=== PATIENT | female | born 1980 | race Caucasian/White ===

== ENCOUNTER 2019-10-01 14:34 | Outpatient (CLI) | payer OTHER, SELFPAY ==
--- NOTE | ~2019-10-01 | CT_ITS ---
EXAMINATION: CT abdomen pelvis w con DATE: 10/01/2019 15:26 INDICATION: Upper abdominal pain TECHNIQUE: Computed tomography (CT) of the abdomen and pelvis was performed with 100 cc Omnipaque 350 intravenous contrast. Automated exposure control and iterative reconstruction technique were employe d. Exam dose: 832.53 mGy-cm total exam DLP. COMPARISON: None. FINDINGS: The lung bases are clear of consolidation. Normal heart size. No pericardial or pleural eff usion. Small sliding hiatal hernia. The liver, gallbladder, bile ducts, spleen, pancreas and pancreatic duct are unremarkable. Normal mor phology of the adrenal glands. Cysts 7 mm left renal cyst. There is mild bilateral hydronephrosis, right greater than left, likely due to compression by a large right adnexal solid mass extending into the upper abdomen well above the level of the umbilicus. The mass measures up to 15.5 cm transverse dimension, up to 17.5 cm vertical dimension. There are some a reas of calcification within the mass. This is likely a mass of right ovarian origin. The uterus and left adnexal area is unremarkable. The urinary bladder is unremarkable. Normal appendix. No bowel obstruction or intraperitoneal free air. Normal caliber of the abdominal aorta. No intraperitoneal or retroperitoneal or pelvic mass lesion is noted other than the large right adnexal mass. Included skeletal structures are unremarkable. IMPRESSION: Up to 17.5 cm right adnexal mass, likely of ovarian origin. Ovarian malignancy cannot be excluded. Gynecologic consult is recommended. Reviewed, dictated and finalized at [facility]. Reviewed, dictated and finalized at location A. IMPRESSION: Up to 17.5 cm right adnexal mass, likely of ovarian origin. Ovaria n malignancy cannot be excluded. Gynecologic consult is recommended.
== END 2019-10-01 14:35 | disposition home or self-care (01) ==
PROVIDERS: PCP Family Medicine; Visit Provider Nurse Practitioner Family
DX: R19.09 Other intra-abdominal and pelvic swelling, mass and lump (principal)
CPT/HCPCS: 74177; Q9967

== ENCOUNTER 2019-10-14 15:23 | Outpatient (CLI) | payer OTHER, SELFPAY ==
--- NOTE | ~2019-10-14 | US_ITS ---
EXAMINATION: US pelvic complete w TV EXAM DATE: 10/14/2019 16:10 INDICATION: Pelvic mass on CT. TECHNIQUE: Pelvic transabdominal and transvaginal sonogram was performed. There are multiple graysca le and Doppler images available for interpretation. Correlation is made to CT 10/01/2019. FINDINGS: Uterus measures 13.3 x 7.3 x 7.8 cmwith a 3.9 cm fibroid identified. Small amount of fluid in the cervical canal. Endometrial stripe measures 10 mm, within normal limits. There is no free pe lvic fluid. Right adnexa: The ovary measures 18.0 x 14.9 x 14.2 cm, with a mildly complex cystic mass accounting for most of this measurement at 17.4 x 14.9 x 13.5 cm. Ovarian vascular flow confirmed. Left adnexa: The ovary is not identified. There is no adnexal mass. IMPRESSION: Right adnexal complex cystic mass likely ovarian neoplasm. Histologic correlation indicat ed. Reviewed, dictated and finalized at location A. IMPRESSION: Right adnexal complex cystic mass likely ovarian neoplasm. Histolog ic correlation indicated.
== END 2019-10-14 15:24 | disposition home or self-care (01) ==
PROVIDERS: PCP Family Medicine; Visit Provider Obstetrics & Gynecology
DX: N94.89 Other specified conditions associated with female genital organs and menstrual cycle (principal)
CPT/HCPCS: 76830; 76856

== ENCOUNTER 2023-01-23 10:21 | Outpatient (CLI) | payer OTHER, SELFPAY ==
--- NOTE | ~2023-01-23 | XR_ITS ---
Left foot Technique: AP, oblique, and lateral views were obtained. Clinical History: Pain Findings: Suspected small avulsion fracture from the dorsal talus. Osseous alignment is anatomic. Beti nt spaces are preserved without erosive or degenerative change. Soft tissues are unremarkable. Impression: Suspected small avulsion fracture from the dorsal talus/talar head. Reviewed, dictated and finalized at location . Impression: Suspected small avulsion fracture from the dorsal talus/talar head.
== END 2023-01-23 10:22 | disposition home or self-care (01) ==
LOC: ANHIMG 10:23
PROVIDERS: PCP Family Medicine; Visit Provider Nurse Practitioner Family
DX: S99.922A Unspecified injury of left foot, initial encounter (principal)
CPT/HCPCS: 73630

== ENCOUNTER 2025-05-07 02:40 | Emergency (ER) | payer OTHER, SELFPAY ==
--- NOTE | ~2025-05-07 | XR_ITS ---
Examination: XR knee RT min 4V Clinical History: pain to knee Comparison: None Technique: 4 views right knee Findings/impression: 1. No fracture, dislocation, or effusion. Reviewed, dictated and finalized at location R. TY ADVISOR
[2025-05-07 02:40] VITALS: BP 132/75; PULSE 84; RESP 16; TEMP 36.6; O2SAT 99
--- OUTSIDE RECORDS SUMMARY | 2025-05-07 02:41 | XMS_ITS | Clinical Summary ---
Author Organization [facility] Address [address] [place] [address] Care Team Providers Care Airport Operations Manager Name Role Phone Victor M Prieto MD Primary Care Provider [phone] Source Comments [facility],non-owned Affiliates and Associated Physician Practices is amultiple site organization consisting of ambulatory clinics and hospital sitesin [place], [place], [place] and [place]. This disclosure is being madepursuant to the Care Everywhere program and may not contain all information available regarding this patient. Last updated 18.[facility] Allergies Active Allergy Reactions Criticality Noted Date Comments Ibuprofen Other Medium 10/24/2019 Abdomen hurts really bad Latex Other Medium 10/24/2019 Irritation Medications * Be aware that medications may not be up to date on this document. Alwaysverify current medications with the patient. montelukast (SINGULAIR) 10 MG tablet Take 1 (one) tablet by mouth 2 times daily as needed 0 Active Albuterol Sulfate, sensor, (PROAIR DIGIHALER) 108 (90 Base) MCG/ACT AEPB Inhale 1 Dose by mouth as directed Active acetaminophen (TYLENOL) 325 MG tabletIndicati ons:Ovarian mass Take 2 tablets by mouth every 6 hours Maximum allowable Acetaminophen amount = 4 Grams (4000 mg) / 24 hours. 40 tablet 0 Active Additional Information Patient not taking.Reported on 09/22/2022 venlafaxine XR 24hr (Effexor XR) 150 MG capsule Take 1 (one) capsule by mouth once daily 90 capsule 4 2 Active Active Problems Problem Noted Date Diagnosed Date Ovarian cancer on left 05/14/2020 S/P CHRISTIANE-BSO (total abdominal hysterectomy and bilateral salpingo-oophorectomy) 05/14/2020 Ovarian mass 11/21/2019 Resolved Problems Problem Noted Date Diagnosed Date Resolved Date Preop examination 11/18/2019 11/21/2019 Family History Medical History Relation Name Comments Crohn's Disease Mother Relation Name Status Comments Mother Social History Tobacco Use Types Packs/Day Years Used Date Smoking Tobacco: Never Smokeless Tobacco: Never Tobacco Cessation:Counseling Given: Not Answered Alcohol Use Standard Drinks/Week Comments Yes 0 (1 standard drink = 0.6 oz pur e alcohol) occ AUDIT-C Answer Date Recorded Q1: How often do you have a drink containing alc ohol? 2-3 times a week 11/18/2019 Q2: How many drinks containi ng alcohol do you have on a typical day when you are drinking? 1 or 2 11/18/2019 Q3: How often do you have si x or more drinks on one occasion? Never 11/18/2019 Comments No Sex and Gender Information Value Date Recorded Sex Assigned at Not on file Legal Sex Female 2:55 PM CDT Gender Identity Not on file Sexual Orientation Not on file Last Filed Vital Signs Vital Sign Reading Time Taken Comments Blood Pressure 124/84 09/22/2022 1:53 PM CDT Pulse 113 03/24/2022 2:35 PM CLINICAL COUNSELOR Temperature 36.8 C (98.3 F) 12/03/2019 2:30 PM CDT Respiratory Rate 20 11/21/2019 12:1 8 PM CDT Oxygen Saturation 98% 03/24/2022 2:35 PM CLINICAL COUNSELOR Inhaled Oxygen Concentration - - Weight 107.3 kg (236 lb 9.6 oz) 03/24/2022 2:35 PM CLINICAL COUNSELOR Height 160 cm (5' 3) 03/24/2022 2:35 PM CLINICAL COUNSELOR Body Mass Index 41.91 03/24/2022 2:35 PM CLINICAL COUNSELOR Plan of Treatment Health Maintenance Due Date Last Done Comments COLOGUARD (AGES 45-75) - COLON CA SCREENING 1978 COLON MONITORING 1978 COLONOSCOPY - COLON CA SCREENING 1978 CT COLONOGRAPHY - COLON CA SCREENING 1978 Colorectal Cancer Screening 1978 FIT - COLON CA SCREENING 1978 FLEX SIG - COLON CA SCREENING 1978 LIPID TESTING 1978 MAMMOGRAM 1978 HIV SCREENING 1993 HEPATITIS C SCREENING 01/07/1996 DTAP/TDAP/TD VACCINES (1 - Tdap) 1997 HEPATITIS B VACCINE (1 of 3 - 19+ 3-dose series) 1997 SCREENING FOR DIABETES 11/20/2022 0, 11/20/2019, 11/19/2019, Additional history exists DEPRESSION SCREENING 05/15/2024 COVID-19 VACCINE ( - season) 2025 INFLUENZA VACCINE (#1) 2025 ZOSTER VACCINE (1 of 2) 01/12/2028 HIB VACCINE Aged Out No longer eligi ble based on patient's age to complete this topic HPV VACCINE Aged Out No longer eligi ble based on patient's age to complete this topic MENINGOCOCCAL (Group B) VACCINE SHARED DECISION-MAKING Aged Out No longer eligible based on patient's age to complete this topic MENINGOCOCCAL GROUPS A/C/Y/W VACCINE Aged Out No longer eligible based on patient's age to complete this topic PNEUMOCOCCAL VACCINE Aged Out No long er eligible based on patient's age to complete this topic Procedures Procedure Name Priority Date/Time Associated Diagnosis Comments BASIC METABOLIC PANEL (CALCIUM TOTAL) Routine 11/21/2019 6:54 AM CDT from Last 3 Months or Most Recently Relevant to Health Maintenance Results * (ABNORMAL) BASIC METABOLIC PANEL (CALCIUM TOTAL) (11/21/2019 6:54 AM CDT) [facility] Glucose 83 70 - 105 mg/dL 11/21/2019 7:[address] [facility] Sodium 136 136 - 145 mmol/L 11/21/2019 7:[address] [facility] Potassium 3.7 3.5 - 5.1 mmol/L 11/21/2019 7:[address] [facility] Chloride 102 98 - 107 mmol/L 11/21/2019 7:[address] [facility] CO2 22(L) 23 - 31 mmol/L 11/21/2019 7:40 AM CDT [facility] Calcium 8.3(L) 8.4 - 10.4 mg/dL 11/21/2019 7:40 AM CDT [facility] Anion Gap 12 8 - 16 mmol/L 11/21/2019 7:[address] [facility] BUN 6(L) 7 - 18.7 mg/dL 11/21/2019 7:40 AM CDT [facility] Creatinine 0.72 0.57 - 1.11 mg/dL 11/21/2019 7:40 AM CDT [facility] eGFR by MDRD >60 >60 mL/min/1.7 3m2 11/21/2019 7:40 AM CDT [facility] eGFR by MDRD >60 >60 mL/min/1.7 2 11/21/2019 7:[address] [facility] Blood BLOOD SPECIMEN / Unknown Lab Venipuncture / Unknown 11/21/2019 6:54 AM CDT 11/21/2019 7:12 AM CDT Darleen Vasquez MD LAB - CHEMISTRY ORDERABLE S Final Result [facility] [address] [id number] from Last 3 Months or Most Recently Relevant to Health Maintenance Insurance Care Teams Airport Operations Manager Relationship Specialty Start Date End Date Victor M Prieto MD [address] [place] [address] PCP - General Family Medicine 11/18/19
--- NOTE | 2025-05-07 07:16 | PC.NURSE ---
Took report on patient at 711
--- NOTE | 2025-05-07 07:25 | ED.GENADULT ---
HPI - General Adult General Chief complaint: Extremity Injury, Lower Stated complaint: right knee Time Seen by Provider: 05/07/25 06:59 History of Present Illness HPI narrative: 45-year-old female present to the emergency department for evaluation for right knee pain. Patient reports that she began having some right knee pain after getting home from work. Patient denies any specific incident fall or injury. Patient states that the pain awoke her from sleep. Patient did take Tylenol for pain control overnight and was icing it. Patient states the pain was so intense that she needed to be evaluated. After waiting in the emergency department patient states her pain has now resolved. At time of my initial evaluation patient is pain free. Related Data Home Medications ?Medication ?Instructions ?Recorded ?Confirmed ?Last Taken ?Type albuterol sulfate 90 mcg/actuation 1 inhalation inhalation Q4H 10/03/19 12/07/21 Unknown History aerosol inhaler (ProAir HFA) venlafaxine 75 mg capsule,extended 75 mg PO DAILY 12/07/21 12/07/21 Unknown History release 24 hr Allergies Allergy/AdvReac Type Severity Reaction Status Date / Time latex Allergy Intermediate Rash Verified 12/07/21 16:18 ibuprofen AdvReac Intermediate Chest Pain Verified 12/07/21 16:18 Review of Systems Review of Systems: All systems reviewed & are unremarkable except as noted in HPI and below PMFSH Past Medical History Medical History (Updated 05/07/25 @ 07:27 by Tobisa Abdullahi MD) Hx of malignant neoplasm of endometrium Pelvic pain Irregular periods Pelvic mass Asthma Family History Family History Mother Family history of gastrointestinal disorder Grandparent Family history of coronary artery disease Social History Social History (Updated 12/07/21 @ 16:20 by Viki Dick RN) Smoking status: Never smoker Tobacco type: cigarettes Alcohol intake: current Drinks per week: 5 Substance use: never Substance use type: does not use Exam Narrative: APPEARANCE: Well appearing, no pain, no distress, well-nourished. HEAD: normocephalic, atraumatic. EYES: PERRLA/EOMI, conjunctivae clear. NOSE: Normal no drainage EARS:TMS clear with good light reflex. THROAT: Pharynx clear, no exudate. NECK: Supple. No adenopathy, no masses. RESPIRATORY: Airway patent, respirations nonlabored. Clear to auscultation bilaterally, no rales, rhonchi, wheezing. CARDIOVASCULAR: Regular rate and rhythm without murmurs rubs or gallops. ABDOMINAL: Soft, nontender, nondistended, normal bowel sounds MUSCULOSKELETAL: Moves all extremities. Strength/ROM intact, No edema, No calf tenderness. NEURO: Alert. Cranial nerves II through XII intact. Good gait. Good coordination SKIN: Warm, dry. Normal Color Course Vital Signs Vital signs: Vital Signs Temperature 97.8 F 05/07/25 02:40 Pulse Rate 84 05/07/25 02:40 Respiratory Rate 16 05/07/25 02:40 Blood Pressure 132/75 05/07/25 02:40 Pulse Oximetry 99 05/07/25 02:40 Oxygen Delivery Room Air 05/07/25 02:40 Temperature 97.8 F 05/07/25 02:40 Pulse Rate 83 05/07/25 07:54 Respiratory Rate 16 05/07/25 07:54 Blood Pressure 140/90 05/07/25 07:54 Pulse Oximetry 98 05/07/25 07:54 Oxygen Delivery Room Air 05/07/25 02:40 MDM MDM Narrative Medical decision making narrative: 45-year-old female presents to the emergency department for evaluation for right knee pain. Patient states pain has since resolved. X-ray was negative for acute fracture dislocation. Patient states she did have some swelling last night but states that the swelling has since resolved. Patient declined Papo wrap and declined crutches for limited weight-bearing. Patient was advised to continue have close follow-up with her primary care physician. All questions concerns were addressed. Differential Diagnosis Differential Diagnosis: Knee effusion, internal derangement of knee, knee fracture, osteoarthritis Imaging Data Attestation: I personally reviewed and interpreted this imaging study as follows: My impression: X-ray knee: No acute fracture or dislocation Discharge Plan Discharge Clinical Impression: Acute knee pain Patient Disposition: Home Condition: Stable Instructions: Antibiotic Form, Knee Pain (ED), Arthralgia (ED) Additional Instructions: Papo wrap as needed for increased knee stability. Crutches for limited weight-bearing as needed. Continue have close follow-up with her primary care physician. If you have any worsening symptoms then please call or return to the emergency department. Patient Language: Kiswahili Prescriptions: No Action venlafaxine 75 mg capsule,extended release 24hr 75 mg PO DAILY naproxen sodium [Aleve] 220 mg capsule 220 mg PO BID PRN (Reason: pain) Qty: 20 0RF cyclobenzaprine 5 mg tablet 5 mg PO QHS PRN (Reason: muscle spasm) Qty: 20 0RF albuterol sulfate [ProAir HFA] 90 mcg/actuation HFA aerosol inhaler 1 inhalation INHALATION Q4H montelukast 10 mg tablet 10 mg PO DAILY Qty: 90 1RF Follow-up/Referrals: Victor M Prieto MD [Primary Care Provider, Family Practice]
[2025-05-07 07:54] VITALS: BP 140/90; PULSE 83; RESP 16; O2SAT 98
== END 2025-05-07 08:02 | disposition home or self-care (01) ==
LOC: ANHED 07:30
PROVIDERS: Emergency Provider Emergency Medicine; PCP Family Medicine
DX: M25.561 Pain in right knee (principal); J45.909 Unspecified asthma, uncomplicated
CPT/HCPCS: 73564; 99283